=== PATIENT | female | born 1955 | race Caucasian/White ===

== ENCOUNTER 2017-03-08 19:54 | Inpatient (IN) | payer BC ==
[~2017-03-08] VITALS: Ht 163.8 cm; Wt 103.6 kg
[~2017-03-08 19:54] MED LIST: BENAZEPRIL HYDR20 MG OR; FAMOTIDINE10 MG PO; FLOVENT 22220 MCG/PU IH; GLYBURIDE 5MG TA5 MG PO; METFORMIN1000 MG PO; METFORMIN500 MG PO; STERAPRED DS10 MG PO; ULTRAM50 MG PO; XOPENEX HF0.045 MG/A IH; Zithromax500 MG PO
[2017-03-08 19:55] VITALS: BP 133/75
--- OUTSIDE RECORDS SUMMARY | 2017-03-08 20:12 | External Medical Summary Rpt | CCD ---
Author Author , BRIANNA FRANK Address Unknown Phone [email or web address] Purpose Continuity of Care Document - through 2016
--- OUTSIDE RECORDS SUMMARY | 2017-03-08 20:12 | External Medical Summary Rpt | CCD ---
Author Author , BRIANNA FRANK Address Unknown Phone [email or web address] Purpose Continuity of Care Document - through 2016
--- OUTSIDE RECORDS SUMMARY | 2017-03-08 20:13 | External Medical Summary Rpt | CCD ---
Author Author , BRIANNA FRANK Address Unknown Phone [email or web address] Purpose Continuity of Care Document - through 2016
--- OUTSIDE RECORDS SUMMARY | 2017-03-08 20:13 | External Medical Summary Rpt | CCD ---
Author Author , BRIANNA FRANK Address Unknown Phone [email or web address] Purpose Continuity of Care Document - through 2016
--- OUTSIDE RECORDS SUMMARY | 2017-03-08 20:14 | External Medical Summary Rpt ---
Author Author MONIKA Jones, [employer] Organization [employer] Address Unknown Phone Unavailable
--- OUTSIDE RECORDS SUMMARY | 2017-03-08 20:14 | External Medical Summary Rpt | CCD ---
Demographics Preferred Language Maltese Marital Status Unknown Lutheran Affiliation Unknown Race Unknown Ethnic Group Unknown Author Author , MONIKA Organization [facility]IK[employer] Address Unknown Phone Immunization Unable to retrieve immunization data due to connection failure with Immunization Registry. Please try again later.
--- OUTSIDE RECORDS SUMMARY | 2017-03-08 20:14 | External Medical Summary Rpt | CCD ---
Demographics Preferred Language Pashto Marital Status Unknown Protestant Affiliation Unknown Race Unknown Ethnic Group Unknown Author Author , MONIKA Organization [facility] Address Unknown Phone Immunization Unable to retrieve immunization data due to connection failure with Immunization Registry. Please try again later.
[2017-03-08] MEDS ORDERED: ASPIRIN 81MG TA81 MG PO (20:15)
[2017-03-08] MEDS ORDERED: VITAMIN B-1100 MG PO (20:15)
[2017-03-08] MEDS ORDERED: VITAMIN E 400400 IU PO (20:16)
[2017-03-08] MEDS ORDERED: VITAMIN C500 M1 PO (20:16)
[2017-03-08] MEDS ORDERED: MAG-OX 400MG T400 MG PO (20:17)
[2017-03-08] MEDS ORDERED: CRANBERRY400 M2 PO (20:18)
[2017-03-08] MEDS ORDERED: METFORMIN1000 MG PO (20:19)
[2017-03-08] MEDS ORDERED: LOTENSIN 20MG T20 MG PO (20:19)
[2017-03-08] MEDS ORDERED: TRESIBA FL100 UNIT/1 SQ (20:20)
[2017-03-08 20:36] LABS: URINE BILIRUBIN - DIPSTICK NEGATIVE (NEG); URINE BLOOD NEGATIVE (NEG)
[2017-03-08 20:37] LABS: HEMOGLOBIN 14.1 g/dL (12.2-16.2); LYMPH # 1.3 K/mm3 (0.7-4.5); LYMPH % 9.9 % (10-50.0)
--- NOTE | 2017-03-08 20:53 | Emergency Room Report ---
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 N Clinical Suspician of Infection? N Mental Status: 1 - Regular (Normal Baseline) Sepsis Risk:Low Sepsis Risk Have you (or family members/close friends) recently traveled outside the [place]? N If Yes, where/when: Have you had exposure to infectious disease within the past month? N TB? Other? Specify: Comment Patient complains of abdominal pain and vomiting. Vomiting started about 1:00 PM today. Pain started after that. The pain has been periumbilical and upper abdomen, worse on the RIGHT than the LEFT and radiating to the RIGHT back. No diarrhea. No previous similar symptoms. No fever. Pain also radiates up into her chest. She has tried Prilosec and Pepcid without improvement. ALLERGIES Coded Allergies: No Known Allergies (03/08/17) Home Medications Reported Medications ASPIRIN (Aspirin) 81 MG PO DAILY THIAMINE HCL (Vitamin B-1) 100 MG PO DAILY Vitamin E (Vitamin E 400 UNITS) 800 IUNITS PO DAILY Ascorbic Acid (Vitamin C) 1,000 MG PO DAILY MAGNESIUM OXIDE (Magnesium Oxide) 1,600 MG PO DAILY Cranberry Fruit (Cranberry) 400 MG PO BID METFORMIN HCL (Metformin) 1,000 MG PO BID Benazepril Hcl (Lotensin 20MG Tab) 20 MG PO DAILY Insulin Degludec (Tresiba Flextouch U-100) 28 UNIT SQ NIGHT History Medical History General CAD? No Angina: Yes GA: No Hypertension? Yes Hyperlipidemia? No CHF? No DVT? No PE? No COPD? No Asthma? No Anemia? No GERD? No Gastric ulcers? No GI Bleed? No Hernia? No Thyroid Problems? No Hypothyroidism? No CVA? No Seizures? No Diabetes? Yes Insulin Dependent: Yes Insulin Pump: No Home FSBS? Yes Renal Insuffiency? No End Stage Renal Disease? No UTI? No Stones? Yes BPH? No GB Disease: No Nephritic Syndrome? No Asplenia? No Hepatitis? No Sickle Cell Disease? No Arthritis? Yes Migraines? No Cataracts? No Glaucoma? No MRSA? No HIV? No TB? No Anxiety? No Depression? No Cancer? No More? No Immunization Hx DT/Tetanus 1-4 YRS Flu REFUSED Pneumonia 06/22/10 Surgical Hx Previous Surgery?Y TUBAL LITHOTRIPSY appendectomy Social History Smoking Hx Smoker: Never Smoker Tobacco: No Alcohol Alcohol: No Review of Systems All Other Systems Reviewed and Negative Constitutional denies fever Respiratory denies cough Cardiovascular chest pain Gastrointestinal abdominal pain, denies diarrhea, vomiting Genitourinary denies: dysuria. Physical Exam Vital Signs Vital Signs Date Time Temp Pulse Resp B/P Pulse O2 O2 Flow FiO2 Ox Delivery Rate 03/08 2225 102 03/08 2225 98.5 102 16 136/67 03/08 2225 98 ROOM AIR 03/08 2219 98.5 102 16 136/67 98 ROOM AIR 03/08 214 98.6 108 18 133/75 95 03/08 2136 18 03/08 2026 18 03/08 1955 98.6 108 18 133/75 95 General Appearance no apparent distress Eye Exam - bilateral eye normal exam, bilateral eye PERRL, bilateral eye EOMI Ear, Nose, Throat hearing grossly normal, normal ENT inspection Neck normal inspection, non-tender, supple, full range of motion Respiratory Status Yes: trachea midline, chest symmetrical, non tender chest. No: respiratory distress. Lung Sounds bilateral: normal breath sounds, lungs clear. Cardiovascular normal exam, regular rate/rhythm, no peripheral edema, no gallop, no JVD, no murmur, no rub, normal peripheral pulses Peripheral Pulses Pulses normal Yes Gastrointestinal normal bowel sounds, soft, no organomegaly, no guarding, no rebound, tenderness (epigastric and RUQ) Extremities non-tender, normal range of motion, normal inspection Neurologic alert, normal exam, oriented x 3 Mental status normal mood/affect Skin intact, normal color, warm/dry Medical Decision Making LABS/Meds/Orders Pt receiving controlled substance in ED? Yes Alf was queried for this patient? No Reason not queried - emergent pt cond=no time Results/Orders Laboratory Tests 03/08/172027: POC Glucose 186 H 03/08/172019: Amylase 1986 *H, Lipase 96087 H 03/08/172019: Sodium 141, Potassium 3.7, Chloride 102, Carbon Dioxide 30, BUN 15, Creatinine 0.7, Estimated Creat Clear 140, Estimated GFR (MDRD) 85, Glucose 195 H, Calcium 9.3, Total Bilirubin 1.9 H, AST 312 *H, ALT 172 H, Alkaline Phosphatase 144 H , Creatine Kinase 106, CK-MB (CK-2) Rel Index 2.5, CK and CKMB Interp 2.7, Troponin I < 0.02, Total Protein 7.0, Albumin 3.8, Globulin 3.2, Albumin/ Globulin Ratio 1.2, WBC 12.7 H, RBC 4.60, Hgb 14.1, Hct 42.2, MCV 91.7, RDW 12.7, Plt Count 202, MPV 8.1, Gran % 85.7 H, Gran # 10.9 H, Total Counted 100, Lymphocytes % 9.9 L, Monocytes % 3.3, Eosinophils % 0.8, Basophils % 0.2, Neutrophils 86 H, Band Neutrophils 7, Lymphocytes (Manual) 6 L, Lymphocytes # 1.3, Monocytes (Manual) 1 L, Monocytes # 0.4, Eosinophils # 0.1, Basophils # 0.0, RBC/WBC/PLT Morphology NORMAL, Platelet Estimate NORMAL, PUBS MCHC 33.3, MCH 30.5 03/08/172007: Urine Color YELLOW, Urine Appearance CLEAR, Urine pH 7.0, Ur Specific [place] 1.015, Urine Protein NEGATIVE, Urine Ketones TRACE H, Urine Blood NEGATIVE, Urine Nitrate NEGATIVE, Urine Bilirubin NEGATIVE, Urine Urobilinogen 0.2, Ur Leukocyte Esterase NEGATIVE, Ur Squamous Epith Cells FEW, Urine Glucose NEGATIVE Current Medication Orders Sig/Enrique Start time Last Medication Dose Route Stop Time Status Admin Diagnostic Test (Pha) 1 EACH W/MEALS&HS 03/09 700 UNV FS 05/08 0659 Insulin Human [rDNA See Dose W/MEALS&HS 03/09 700 UNV origin] Insts (1) SC Influenza Virus 0.5 ML PRN PRN 03/08 2145 UNV Vaccine Quadrival IM Morphine Sulfate 2 MG Q2HP PRN 03/08 2145 UNV IV Nicotine 21 MG DAILYP PRN 03/08 2145 UNV TD Ondansetron HCl 4 MG Q6HP PRN 03/08 2145 UNV IV Sodium Chloride 1,000 ML .Q6H40M 03/08 2145 UNV 03/08 IV 2234 Sodium Chloride 10 ML PRN PRN 03/08 2145 UNV IV Morphine Sulfate 0 .STK-MED ONE 03/08 2134 DC .ROUTE Morphine Sulfate 4 MG ONCE ONE 03/08 2130 DC 03/08 IV 03/08 Ketorolac 30 MG ONCE ONE 03/08 2030 DC 03/08 Tromethamine IV 03/08 Ondansetron HCl 4 MG ONCE ONE 03/08 2030 DC 03/08 IV 03/08 Sodium Chloride 1,000 ML .Q1H1M 03/08 2030 DC 03/08 IV 03/08 Sodium Chloride 10 ML PRN PRN 03/08 2030 AC IV 03/09 2022 Sodium Chloride 10 ML PRN PRN 03/08 2030 AC IV 03/09 2023 Ketorolac 0 .STK-MED ONE 03/08 2024 DC Tromethamine .ROUTE Ondansetron HCl 0 .STK-MED ONE 03/08 2024 DC .ROUTE Sodium Chloride 1,000 ML .STK-MED ONE 03/08 2024 DC IV Dose Instructions: (1)Insulin Human [rDNA origin]: SEE ADMIN CRITERIA FOR MEDIUM INTENSITY Orders Procedure Date/time Status US GALLBLADDER (ABD LTD) 03/10 0700 Active DIET-NOTHING BY MOUTH 03/09 B Active LIPASE 03/09 06 Active COMPLETE METABOLIC PANEL 03/09 06 Active ADMITTED PT IS ACTUALLY IN BED 03/08 2222 Active Decision to admit 03/08 2130 Active LIPASE 03/08 2036 Complete FSBS REQUEST BY CARE AREA 03/08 2036 Active AMYLASE 03/08 2036 Complete URINALYSIS/COMPLETE 03/08 2031 Complete FINGERSTICK BLOOD SUGAR 03/08 2028 Complete ELECTROCARDIOGRAM REQUEST 03/[address] ABD/PELVIS REQ 03/08 2024 Active CHEST(2 VIEWS-NOT PORTABLE) 03/08 2024 Active IV SALINE LOCK 03/08 2024 Active CBC WITH AUTO DIFF 03/08 2024 Complete CARDIAC ENZYMES 03/08 2024 Complete CHEM 12 PROFILE 03/08 2024 Complete DIFFERENTIAL-WBC 03/08 2020 Complete ADMIT PATIENT 03/08 UNK Active 12 LEAD EKG-BESSON (INITIAL) 03/[address] ABD & PELVIS W/O CONTRAST 03/08 UNK Active VITAL SIGNS 03/08 UNK Active POM NURSE JON HOSE ORDER 03/08 UNK Active IV SALINE LOCK 03/08 UNK Active RECORD I & O 03/08 UNK Active CODE STATUS 03/08 UNK Active PATIENT ACTIVITY ORDER 03/08 UNK Active CM/EKG CM/EKG Comments EKG interpreted by Doroteo Momin MD: Rhythm: sinus Rate: 80 [place]: normal Ectopy: none Conduction: normal ST Segment Changes: none T Wave Changes: none Q Waves: none No evidence of acute ischemia or injury Poor R-wave progression Prior electrocardiagrams reviewed. No change from prior tracings. XRAY/CT/US XRAY/CT/US XRAY chest Comment Chest x-ray interpreted by Doroteo Momin M.D. No infiltrate, pneumothorax, pleural effusion, or wide mediastinum. CT abdomen, pelvis Comment CT scan interpreted by [facility] radiologist. Faxed report received and reviewed: Acute pancreatitis with secondary inflammation of the adjacent duodenum. He adjacent duodenum shows severe wall thickening and underlying tiny ulcer cannot be completely excluded on this exam. Distended gallbladder, no calcified stones. Progress - 9:30 PM: I have discussed the case with Dr. Payton who agrees to admit the patient to the hospital. We discussed the patient's clinical information, including history, exam, laboratory and radiology results and ED course. Per hospital procedure, I will write temporary bridge inpatient orders on the patient. Specific orders requested by the admitting physician: Nothing by mouth, IV fluids, pain control Departure Departure Disposition Still a Patient Clinical Impression Primary Impression: Acute pancreatitis Qualifiers: Pancreatitis type: unspecified pancreatitis type Acute pancreatitis complication: no infection or necrosis Qualified Code: K85.90 - Acute pancreatitis without necrosis or infection, unspecified Condition STABLE ED Critical Care Critical Care No at [id number]
[2017-03-08 20:55] LABS: URINE SQUAMOUS CELLS FEW #/hpf (0-5)
[2017-03-08 21:03] LABS: NEUTROPHILS 86 % (42-76)
[2017-03-08 21:09] LABS: BUN 15 mg/dL (7-18); GFR (ESTIMATED) 85 ML/MIN (59-)
--- OUTSIDE RECORDS SUMMARY | 2017-03-08 21:35 | External Medical Summary Rpt | CCD ---
Author Author , BRIANNA FRANK Address Unknown Phone [email or web address] Purpose Continuity of Care Document - through 2016
--- OUTSIDE RECORDS SUMMARY | 2017-03-08 21:35 | External Medical Summary Rpt | CCD ---
Author Author , BRIANNA FRANK Address Unknown Phone [email or web address] Purpose Continuity of Care Document - through 2016
--- OUTSIDE RECORDS SUMMARY | 2017-03-08 21:35 | External Medical Summary Rpt | CCD ---
Author Author , MONIKA Organization MONIKA Address Unknown Phone [email or web address] Purpose Continuity of Care Document - 03-08-2017 through 2016 Results Labs Lab Lab Date Result Refere Interp Status Commen Order Detail nces retati t Range on Glucose capillary blood glucometer (03-08-2017 20:28) Glucose = 186 70-110 complet 017 mg/dl ed capilla 20:[address] CBC w auto diff (03-08-2017 20:20) Automat = 0.0 0-0.2 complet ed 017 K/MM3 ed blood 20:20 basophi l count (count/ vo Baso % = 0.2 % 0.1-2.0 complet 017 ed 20:20 Automat = 0.1 0.0-0.4 complet ed 017 K/mm3 ed blood 20:20 eosinop hil count Automat = 0.8 % 0.1-12. complet ed 017 0 ed blood 20:20 eosinop hils/10 0 leukocy t Blood = 10.9 1.8-7.8 complet granulo 017 K/mm3 ed cytes 20:20 automat ed count (numb Granulo = 85.7 37.0-80 complet cyte 017 % .0 ed percent 20:20 age Blood = 42.2 37.0-47 complet hematoc 017 % .0 ed rit 20:20 (volume fractio n) Blood = 14.1 12.2-16 complet hemoglo 017 g/dL .2 ed bin 20:20 measure ment (mass/v olum Absolut = 1.3 0.7-4.5 complet e 017 K/mm3 ed lymphoc 20:20 yte count Lymphoc = 9.9 % 10-50.0 complet yte 017 ed count, 20:20 blood, automat ed Mean = 30.5 27-31.2 complet corpusc 017 pg ed ular 20:20 hemoglo bin (MCH) determ Automat = 33.3 31.8-35 complet ed 017 g/dl .4 ed erythro 20:20 cyte mean corpusc ular h Automat = 91.7 82.2-97 complet ed 017 fl .8 ed erythro 20:20 cyte mean corpusc ular v Absolut = 0.4 0.1-1.0 complet e 017 K/mm3 ed monocyt 20:20 e count [place] % = 3.3 % 1.7-9.3 complet 017 ed 20:20 Automat = 8.1 7.4-10. complet ed 017 fl 4 ed blood 20:20 platele t mean volume [place] Blood = 202 142-424 complet platele 017 K/mm3 ed t count 20:20 Red = 4.60 4.2-5.4 complet blood 017 M/mm3 ed cell 20:20 count Automat = 12.7 11.5-17 complet ed 017 % .5 ed erythro 20:20 cyte distrib ution width Blood = 12.7 4.8-10. complet leukocy 017 K/MM3 8 ed dayna 20:20 count (number /volume ) Differential panel, method unspecified - (03-08-2017 20:20) Automat = 7 % 0-8 complet ed 017 ed blood 20:20 band neutrop hil percent a LYMPH 6 % 10-50 complet 017 ed 20:20 Monocyt = 1 % 2-9 complet e % 017 ed 20:20 Platele NORMAL complet t 017 NORMAL ed estimat 20:20 L e Neutrop = 86 % 42-76 complet hil 017 ed count 20:20 RBC NORMAL complet morphol 017 NORMAL ed ogy 20:20 L Blood = 100 complet total 017 #CELLS ed cell 20:20 count Cardiac enzymes (03-08-2017 20:20) Serum = 2.5 0-4.0 complet or 017 U/L ed plasma 20:20 creatin e kinase MB (CK-M Serum = 2.7 0.0-3.6 complet or 017 ng/mL ed plasma 20:20 creatin e kinase MB measu Serum = 106 26-192 complet or 017 U/L ed plasma 20:20 creatin e kinase measure m Serum < 0.02 0.00-0. complet or 017 ng/mL 06 ed plasma 20:20 troponi n i.cardi ac measu Comprehensive metabolic panel (03-08-2017 20:20) Serum = 3.8 3.4-5.0 complet or 017 gm/dL ed plasma 20:20 albumin measure ment (mas Serum = 144 46-116 complet or 017 U/L ed plasma 20:20 alkalin e phospha tase chalino Serum = 1.9 0.2-1.0 complet or 017 mg/dL ed plasma 20:20 total bilirub in measure m Serum = 1.2 1.1-1.8 complet or 017 ed plasma 20:20 albumin /globul in mass ra Serum = 15 7-18 complet or 017 mg/dL ed plasma 20:20 urea nitroge n measure men Serum = 9.3 8.5-10. complet or 017 mg/dL 1 ed plasma 20:20 calcium measure ment (mas Serum = 102 98-107 complet or 017 mmoL/L ed plasma 20:20 chlorid e measure ment (mo Carbon = 30 21.0-32 complet dioxide 017 mmoL/L .0 ed 20:20 measure ment Serum = 0.7 0.55-1. complet or 017 mg/dL 02 ed plasma 20:20 creatin ine measure ment ( Estimat = 140 50-200 complet ion of 017 ML/MIN ed creatin 20:20 ine renal clearan ce Estimat = 85 59- complet ed 017 ML/MIN ed glomeru 20:20 lar filtrat ion rate (GF Comment: REFERENCE RANGE: >60 ML/MIN/1.73 SQUARE METERS Comment: If this patient is -Guinean, then multiply the Comment: result by 1.210. Serum = 3.2 1.3-3.2 complet globuli 017 gm/dL ed n 20:20 measure ment (mass/v olume) Serum = 195 74-106 complet or 017 mg/dL ed plasma 20:20 glucose measure ment (mas Serum = 3.7 3.5-5.1 complet potassi 017 mmoL/L ed um 20:20 measure ment Serum = 141 136-145 complet sodium 017 mmoL/L ed measure 20:20 ment Serum = 312 15-37 complet or 017 U/L ed plasma 20:20 asparta te aminotr ansfera ALT = 172 12-78 complet (SGPT) 017 U/L ed ser/yuri 20:20 s Protein = 7.0 6.4-8.2 complet total 017 gm/dL ed ser/yuri 20:20 s Amylase ser/plas (03-08-2017 20:20) Amylase = 1985 25-115 complet 017 U/L ed ser/yuri 20:20 s Lipase measurement (03-08-2017 20:20) Lipase = [address]77 73-393 complet measure 017 U/L ed ment 20:20 Differential panel, method unspecified - (03-08-2017 20:20) LYMPH 6 % 10% - Low complet 017 50% ed 20:20 Platele NORMAL complet ts 017 ed [Presen 20:20 ce] in Blood by Light microsc opy Erythro NORMAL complet cyte 017 ed morphol 20:20 ogy finding [Identi fier] in Blood Urinalysis with microscopy (03-08-2017 20:08) Urine CLEAR CLEAR complet appeara 017 CLEAR L ed nce 20:08 determi nation Urine NEGATIV NEG complet total 017 E ed bilirub 20:08 NEGATIV in E L detecti on by test Urine NEGATIV NEG complet blood 017 E ed detecti 20:08 NEGATIV on E L Urine YELLOW YELLOW complet color 017 YELLOW ed 20:08 L Glucose = NEG complet ur 017 NEGATIV ed test 20:08 E strip Urine TRACE NEG complet ketones 017 TRACE L ed 20:08 mg/dL detecti on by automat ed dayna Mucus NEGATIV NEG complet detecti 017 E ed on in 20:08 NEGATIV urine E L sedimen t by lig Urine NEGATIV NEG complet nitrite 017 E ed 20:08 NEGATIV detecti E L on by test strip Urine = 7.0 5.0-8.5 complet pH 017 ed 20:08 Urine = NEG complet protein 017 NEGATIV ed 20:08 E mg/dL measure ment by automat ed t Urine = 1.015 1.005-1 complet specifi 017 .030 ed c 20:08 gravity measure ment [place] FEW FEW 0-5 complet s 017 L ed epithel 20:08 #/hpf ial cells detecti on in u Urine 0.2 0.2 NEG complet urobili 017 L ed nogen 20:08 E.U./dL detecti on by test str Urinalysis dipstick W Reflex Microscopic panel in Urine (03-08-2017 20:08) Epithel FEW 0#/hp complet ial 017 f - ed cells.s 20:08 5#/hp quamous f [Presen ce] in Urine sedimen t by Microsc opy high power field Urinalysis dipstick W Reflex Microscopic panel in Urine (03-08-2017 20:08) Appeara CLEAR CLEAR complet nce of 017 ed Urine 20:08 Bilirub NEGATIV NEG complet in 017 E ed [Presen 20:08 ce] in Urine by Test strip Erythro NEGATIV NEG complet cytes 017 E ed [Presen 20:08 ce] in Urine Color YELLOW YELLOW complet of 017 ed Urine 20:08 Ketones TRACE NEG Abnorma complet 017 l ed [Presen 20:08 ce] in Urine by Automat ed test strip Mucus NEGATIV NEG complet [Presen 017 E ed ce] in 20:08 Urine sedimen t by Light microsc opy Nitrite NEGATIV NEG complet 017 E ed [Presen 20:08 ce] in Urine by Test strip Urobili 0.2 NEG complet nogen 017 ed [Presen 20:08 ce] in Urine by Test strip
--- OUTSIDE RECORDS SUMMARY | 2017-03-08 21:35 | External Medical Summary Rpt | CCD ---
Author Author , MONIKA Organization MONIKA Address Unknown Phone [email or web address] Purpose Continuity of Care Document - 03-08-2017 [...] 017 K/mm3 ed monocyt 20:20 e count [place] % = 3.3 % 1.7-9.3 complet 017 [...] SQUARE METERS Comment: If this patient is -[place], then multiply the Comment: result by 1.210. [...] s Lipase measurement (03-08-2017 20:20) Lipase = 31506 73-393 complet measure 017 U/L ed ment [...]
--- OUTSIDE RECORDS SUMMARY | 2017-03-08 21:36 | External Medical Summary Rpt | CCD ---
Demographics Preferred Language Greenlandic Marital Status Unknown Pentecostal Affiliation Unknown Race Unknown Ethnic Group Unknown Author Author , MONIKA Organization [employer] Address Unknown Phone Immunization Unable to retrieve immunization data due to connection failure with Immunization Registry. Please try again later.
--- OUTSIDE RECORDS SUMMARY | 2017-03-08 21:36 | External Medical Summary Rpt | CCD ---
Demographics Preferred Language Belarusian Marital Status Unknown Samaritan Affiliation Unknown Race Unknown Ethnic Group Unknown Author Author , MONIKA Organization [facility] Address Unknown Phone Immunization Unable to retrieve immunization data due to connection failure with Immunization Registry. Please try again later.
--- OUTSIDE RECORDS SUMMARY | 2017-03-08 21:37 | External Medical Summary Rpt ---
Author Author MONIKA Robert, [employer] Organization [employer] Address Unknown Phone Unavailable Results Glucose [Mass/volume] in Capillary blood by Glucometer Observa Value Referen Units Interpr Notes Date tion ce etation Range Glucose 70 - 110 mg/dl High No Mar 08 [Mass/vol informati 2016 8:28 ume] in on in PM Capillary source blood by data Glucomete r Amylase [Enzymatic activity/volume] in Serum or Plasma Observa Value Referen Units Interpr Notes Date tion ce etation Range Amylase 25 - 115 U/L High No Mar 08 [Enzymati alert informati 2016 8:20 c on in PM activity/ source volume] data in Serum or Plasma Lipase [Enzymatic activity/volume] in Serum or Plasma Observa Value Referen Units Interpr Notes Date tion ce etation Range Lipase 73 - 393 U/L High No Mar 08 [Enzymati informati 2016 8:20 c on in PM activity/ source volume] data in Serum or Plasma CBC W Auto Differential panel in Blood Observa Value Referen Units Interpr Notes Date tion ce etation Range Basophils 0 - 0.2 K/MM3 Normal No Mar 08 informati 2016 8:20 [#/volume on in PM ] in source Blood by data Automated count Basophils 0.1 - 2.0 % Normal No Mar 08 informati 2016 8:20 leukocyte on in PM s in source Blood by data Automated count Eosinophi 0.0 - 0.4 K/mm3 Normal No Mar 08 ls informati 2016 8:20 [#/volume on in PM ] in source Blood by data Automated count Eosinophi 0.1 - % Normal No Mar 08 ls/100 12.0 informati 2016 8:20 leukocyte on in PM s in source Blood by data Automated count Granulocy 1.8 - 7.8 K/mm3 High No Mar 08 dayna informati 2016 8:20 [#/volume on in PM ] in source Blood by data Automated count Granulocy 37.0 - % High No Mar 08 dayna/100 80.0 informati 2017 8:20 leukocyte on in PM s in source Blood by data Automated count Hematocri 37.0 - % Normal No Mar 08 t [Volume 47.0 informati 2016 8:20 on in PM Fraction] source of Blood data Hemoglobi 12.2 - g/dL Normal No Mar 08 n 16.2 informati 2016 8:20 [Mass/vol on in PM ume] in source Blood data Lymphocyt 0.7 - 4.5 K/mm3 Normal No Mar 08 es informati 2016 8:20 [#/volume on in PM ] in source Unspecifi data ed specimen by Automated count Lymphocyt 10 - 50.0 % Low No Mar 08 es informati 2016 8:20 [#/volume on in PM ] in source Unspecifi data ed specimen by Automated count Erythrocy 27 - 31.2 pg Normal No Mar 08 te mean informati 2016 8:20 corpuscul on in PM ar source hemoglobi data n [Entitic mass] Erythrocy 31.8 - g/dl Normal No Mar 08 te mean 35.4 informati 2016 8:20 corpuscul on in PM ar source hemoglobi data n concentra tion [Mass/vol ume] by Automated count Erythrocy 82.2 - fl Normal No Mar 08 te mean 97.8 informati 2016 8:20 corpuscul on in PM ar volume source [Entitic data volume] by Automated count Monocytes 0.1 - 1.0 K/mm3 Normal No Mar 08 informati 2016 8:20 [#/volume on in PM ] in source Blood by data Automated count Monocytes 1.7 - 9.3 % Normal No Mar 08 /100 informati 2016 8:20 leukocyte on in PM s in source Blood by data Automated count Platelet 7.4 - fl Normal No Mar 08 mean 10.4 informati 2016 8:20 volume on in PM [Entitic source volume] data in Blood by Automated count Platelets 142 - 424 K/mm3 Normal No Mar 08 informati 2016 8:20 [#/volume on in PM ] in source Blood data Erythrocy 4.2 - 5.4 M/mm3 Normal No Mar 08 dayna informati 2016 8:20 [#/volume on in PM ] in source Amniotic data fluid Erythrocy 11.5 - % Normal No Mar 08 te 17.5 informati 2016 8:20 distribut on in PM ion width source [Entitic data volume] by Automated count Leukocyte 4.8 - K/MM3 High No Feb 28 s 10.8 informati 2016 8:20 [#/volume on in PM ] in source Blood data Differential panel, method unspecified - Observa Value Referen Units Interpr Notes Date tion ce etation Range Neutrophi 0 - 8 % Normal No Mar 08 ls.band informati 2016 8:20 form/100 on in PM leukocyte source s in data Blood by Automated count LYMPH 6 10 - 50 % Low No Mar 08 inform2016 tion in 8:20 PM source data Monocytes 2 - 9 % Low No Oct 28 /100 informati 2016 8:20 leukocyte on in PM s in source Blood by data Automated count Platele NORMAL No No No No Mar 08 ts informa informa informa informa 2016 [Presen tion in tion in tion in tion in 8:20 PM ce] in source source source source Blood data data data data by Light microsc opy Neutrophi 42 - 76 % High No Mar 08 ls informati 2016 8:20 [#/volume on in PM ] in source Blood by data Automated count Erythro NORMAL No No No No Mar 08 cyte informa informa informa informa 2016 morphol tion in tion in tion in tion in 8:20 PM ogy source source source source finding data data data data [Identi fier] in Blood Cells No #CELLS No No Mar 08 Counted informati informati informati 2016 8:20 Total [#] on in on in on in PM in Blood source source source data data data Urinalysis dipstick W Reflex Microscopic panel in Urine Observa Value Referen Units Interpr Notes Date tion ce etation Range Appeara CLEAR CLEAR No No No Mar 08 nce of informa informa informa 2016 Urine tion in tion in tion in 8:08 PM source source source data data data Bilirub NEGATIV NEG No No No Mar 08 in E informa informa informa 2016 [Presen tion in tion in tion in 8:08 PM ce] in source source source Urine data data data by Test strip Erythro NEGATIV NEG No No No Mar 08 cytes E informa informa informa 2016 [Presen tion in tion in tion in 8:08 PM ce] in source source source Urine data data data Color YELLOW YELLOW No No No Mar 08 of informa informa informa 2016 Urine tion in tion in tion in 8:08 PM source source source data data data Glucose NEG No No No Mar 08 [Mass/vol informati informati informati 2016 8:08 ume] in on in on in on in PM Urine by source source source Test data data data strip Ketones TRACE NEG mg/dL Abnorma No Mar 08 l informa 2016 [Presen tion in 8:08 PM ce] in source Urine data by Automat ed test strip Mucus NEGATIV NEG No No No Mar 08 [Presen E informa informa informa 2016 ce] in tion in tion in tion in 8:08 PM Urine source source source sedimen data data data t by Light microsc opy Nitrite NEGATIV NEG No No No Mar 08 E informa informa informa 2016 [Presen tion in tion in tion in 8:08 PM ce] in source source source Urine data data data by Test strip pH of 5.0 - 8.5 No Normal No Mar 08 Urine informati informati 2016 8:08 on in on in PM source source data data Protein NEG mg/dL No No Mar 08 [Mass/vol informati informati 2016 8:08 ume] in on in on in PM Urine by source source Automated data data test strip Specific 1.005 - No Normal No Mar 08 gravity 1.030 informati informati 2016 8:08 of Urine on in on in PM source source data data Epithel FEW 0 - 5 #/hpf No No Mar 08 ial informa informa 2016 cells.s tion in tion in 8:08 PM quamous source source data data [Presen ce] in Urine sedimen t by Microsc opy high power field Urobili 0.2 NEG E.U./dL No No Mar 08 nogen informa informa 2016 [Presen tion in tion in 8:08 PM ce] in source source Urine data data by Test strip Urinalysis dipstick W Reflex Microscopic panel in Urine Observa Value Referen Units Interpr Notes Date tion ce etation Range Appeara CLEAR CLEAR No No No Mar 08 nce of informa informa informa 2016 Urine tion in tion in tion in 8:08 PM source source source data data data Bilirub NEGATIV NEG No No No Mar 08 in E informa informa informa 2016 [Presen tion in tion in tion in 8:08 PM ce] in source source source Urine data data data by Test strip Erythro NEGATIV NEG No No No Mar 08 cytes E informa informa informa 2016 [Presen tion in tion in tion in 8:08 PM ce] in source source source Urine data data data Color YELLOW YELLOW No No No Mar 08 of informa informa informa 2016 Urine tion in tion in tion in 8:08 PM source source source data data data Glucose NEG No No No Mar 08 [Mass/vol informati informati informati 2016 8:08 ume] in on in on in on in PM Urine by source source source Test data data data strip Ketones TRACE NEG mg/dL Abnorma No Mar 08 l informa 2016 [Presen tion in 8:08 PM ce] in source Urine data by Automat ed test strip Mucus NEGATIV NEG No No No Mar 08 [Presen E informa informa informa 2016 ce] in tion in tion in tion in 8:08 PM Urine source source source sedimen data data data t by Light microsc opy Nitrite NEGATIV NEG No No No Mar 08 E informa informa informa 2016 [Presen tion in tion in ti in 8:08 PM ce] in source source source Urine data data data by Test strip pH of 5.0 - 8.5 No Normal No Mar 08 Urine informati informati 2016 8:08 on in on in PM source source data data Protein NEG mg/dL No No Mar 08 [Mass/vol informati informati 2016 8:08 ume] in on in on in PM Urine by source source Automated data data test strip Specific 1.005 - No Normal No Mar 08 gravity 1.030 informati informati 2016 8:08 of Urine on in on in PM source source data data Urobili 0.2 NEG E.U./dL No No Mar 08 nogen informa informa 2016 [Presen tion in tion in 8:08 PM ce] in source source Urine data data by Test strip
[2017-03-08 22:19] VITALS: BP 136/67
[2017-03-08 22:25] VITALS: BP 136/67
[2017-03-09 03:55] VITALS: BP 122/60
--- NOTE | 2017-03-09 06:58 | RADIOLOGY REPORT PS360 ---
CHEST(2 VIEWS-NOT PORTABLE) HISTORY: Pain VOMITING ORDERING PHYSICIAN: Doroteo Momin MD PATIENT AGE: 61 years COMPARISON: 06/20/2010 FINDINGS: The cardiomediastinal silhouette and pulmonary vascularity are within normal limits. The lungs are clear without infiltrates, suspicious nodules, or pleural effusions. No acute bony abnormalities. IMPRESSION: Negative chest, no acute finding
[2017-03-09 07:20] VITALS: BP 134/71
--- NOTE | 2017-03-09 07:42 | RADIOLOGY REPORT PS360 ---
CT ABD PELVIS W/O CONTRAST CLINICAL INDICATION: Abdominal pain and tenderness with nausea and vomiting C/O ABD PAIN ORDERING PHYSICIAN: Deon Payton MD PATIENT AGE: 61 years COMPARISON: 07/23/2013 TECHNIQUE: Axial images obtained with sagittal and coronal reformats. PROCEDURE: Oral Contrast: None IV Contrast: None . FINDINGS: Lung bases are clear. Mild diffuse fatty liver. No focal liver lesion. Gallbladder is distended. No radio opaque stones. The spleen and adrenal glands are unremarkable. There is mild diffuse stranding of the peripancreatic fat consistent with acute pancreatitis. There is thickening of the adjacent duodenum involving the descending and transverse portion of the duodenum consistent with secondary inflammation. Small gas collections are noted within the duodenum and may be due to 2 duodenal diverticula as seen on previous exam. No free air is evident. No intestinal obstruction. No renal calculi or hydronephrosis. No abnormal fluid collections. There is partially calcified rounded lesion in the right adnexa unchanged. There is generalized spondylosis of the lumbar spine. IMPRESSION: 1. The findings are consistent with acute pancreatitis with secondary inflammation of the adjacent duodenum with probable duodenal diverticula.. Cannot exclude ulceration within the duodenum. Gas pockets are noted in the duodenum and could be due to diverticula. Consider follow-up exam with both IV and oral contrast for more thorough evaluation. 2. Distended gallbladder
--- NOTE | 2017-03-09 08:53 | HISTORY AND PHYSICAL REPORT ---
Demographics: Admit date: 03/08/17 Chief complaint: Epigastric pain PRIMARY DIAGNOSIS: ACUTE PANCREATITIS Allergies: Coded Allergies: No Known Allergies (03/08/17) History of present illness: History of present illness: 61-year-old white female diabetic, insulin requiring, who came to the emergency department yesterday evening with a sudden onset of severe epigastric pain that radiated down into both lower quadrants and through to her back. She reports significant nausea without vomiting, no diarrhea or constipation. No recent exposure to undercooked food or questionable water sources, no recent change in her medications. No recent alcohol use. In the emergency department she was noted to have elevated amylase and lipase, CT scan confirmed the finding of pancreatitis radiographically with evidence of duodenitis. Past medical history: Family HX Diabetes Yes CAD Yes Hypertension Yes Hyperlipidemia Yes Cancer No TB No Immunization HX DT/Tetanus 5-10 Years Ago Flu 2017-18FSN Pneumonia Received In Past TB Test in last year No General CAD? No Angina: Yes TN: No Hypertension? Yes Hyperlipidemia? No CHF? No DVT? No PE? No COPD? No Asthma? No Anemia? No GERD? No Gastric ulcers? No GI Bleed? No Hernia? No Thyroid Problems? No Hypothyroidism? No CVA? No Seizures? No Diabetes? Yes Insulin Dependent: Yes Insulin Pump: No Home FSBS? Yes Renal Insuffiency? No UTI? No Stones? Yes BPH? No GB Disease: No Nephritic Syndrome? No Asplenia? No Hepatitis? No Sickle Cell Disease? No Arthritis? Yes Migraines? No Cataracts? No Glaucoma? No MRSA? No HIV? No TB? No Anxiety? No Depression? No Cancer? No More? No Past Surgical HX Previous Surgery?Y TUBAL LITHOTRIPSY Current home meds: Reported Medications ASPIRIN (Aspirin) 81 MG PO DAILY THIAMINE HCL (Vitamin B-1) 100 MG PO DAILY Vitamin E (Vitamin E 400 UNITS) 800 IUNITS PO DAILY Ascorbic Acid (Vitamin C) 1,000 MG PO DAILY MAGNESIUM OXIDE (Magnesium Oxide) 1,600 MG PO DAILY Cranberry Fruit (Cranberry) 400 MG PO BID METFORMIN HCL (Metformin) 1,000 MG PO BID Benazepril Hcl (Lotensin 20MG Tab) 20 MG PO DAILY Insulin Degludec (Tresiba Flextouch U-100) 28 UNIT SQ NIGHT Social Hx: Smoking HX Tobacco No Type N/A Alcohol Alcohol: No Hx of Drug Use Drug Use? No Patien't marital status is Patient's support system is excellent Review of systems: Constitutional fever, malaise, weakness. Respiratory No: no symptoms reported. Cardiovascular No no symptoms reported Gastrointestinal/Abdominal see HPI Genitourinary No: no symptoms reported. Musculoskeletal No: no symptoms reported. Neurological Yes: headache. No: numbness, tingling, tremors, weakness, parasthesia, seizure disorder. Exam: Lab data for last 24 hours: Laboratory Tests 03/09/17 0617: POC Glucose 150 H 03/09/17 0605: Sodium 141, Potassium 3.8, Chloride 104, Carbon Dioxide 29, BUN 15, Creatinine 0.8, Estimated Creat Clear 119, Estimated GFR (MDRD) 73, Glucose 159 H, Calcium 8.7, Total Bilirubin 3.8 H, AST 499 *H, ALT 389 *H, Alkaline Phosphatase 156 H , Total Protein 6.5, Albumin 3.3 L, Globulin 3.2, Albumin/Globulin Ratio 1.0 L , Lipase 6926 H 03/08/172027: POC Glucose 186 H 03/08/172019: Amylase 1986 *H, Lipase 05049 H 03/08/17 2020: Sodium 141, Potassium 3.7, Chloride 102, Carbon Dioxide 30, BUN 15, Creatinine 0.7, Estimated Creat Clear 140, Estimated GFR (MDRD) 85, Glucose 195 H, Calcium 9.3, Total Bilirubin 1.9 H, AST 312 *H, ALT 172 H, Alkaline Phosphatase 144 H , Creatine Kinase 106, CK-MB (CK-2) Rel Index 2.5, CK and CKMB Interp 2.7, Troponin I < 0.02, Total Protein 7.0, Albumin 3.8, Globulin 3.2, Albumin/ Globulin Ratio 1.2, WBC 12.7 H, RBC 4.60, Hgb 14.1, Hct 42.2, MCV 91.7, RDW 12.7, Plt Count 202, MPV 8.1, Gran % 85.7 H, Gran # 10.9 H, Total Counted 100, Lymphocytes % 9.9 L, Monocytes % 3.3, Eosinophils % 0.8, Basophils % 0.2, Neutrophils 86 H, Band Neutrophils 7, Lymphocytes (Manual) 6 L, Lymphocytes # 1.3, Monocytes (Manual) 1 L, Monocytes # 0.4, Eosinophils # 0.1, Basophils # 0.0, RBC/WBC/PLT Morphology NORMAL, Platelet Estimate NORMAL, PUBS MCHC 33.3, MCH 30.5 03/08/172007: Urine Color YELLOW, Urine Appearance CLEAR, Urine pH 7.0, Ur Specific [place] 1.015, Urine Protein NEGATIVE, Urine Ketones TRACE H, Urine Blood NEGATIVE, Urine Nitrate NEGATIVE, Urine Bilirubin NEGATIVE, Urine Urobilinogen 0.2, Ur Leukocyte Esterase NEGATIVE, Ur Squamous Epith Cells FEW, Urine Glucose NEGATIVE Admission vital signs: 1ST Vital Signs Result Date Time Pulse Ox 95 03/08 1955 B/P 133/75 03/08 1955 Temp 98.6 03/08 1955 Pulse 108 03/08 1955 Resp 18 03/08 1955 O2 Delivery ROOM AIR 03/08 2219 Additional information: Patient is awake, alert, pleasant. ENT exam clear. Lungs clear, heart rate regular without murmurs. Abdomen is soft, her morbid obesity limits the accuracy of the exam. She has epigastric tenderness but no rebound or guarding. No periumbilical or flank bruising. No CVA tenderness. No edema or clubbing. Plan: Problem List 1. Acute pancreatitis Plan: Patient is febrile this morning, I will add Invanz to cover possible cholangitis given the high likelihood that this is gallstone pancreatitis. Duodenitis on CT scan. Add Protonix intravenously. Gallbladder ultrasound tomorrow. Continue pain control and IV fluids and bowel rest. at 0853
[2017-03-09 10:04] VITALS: BP 134/71
--- NOTE | 2017-03-09 10:24 | PHARMACY CLINIC NOTE ---
Patient Demographics Patient Demographics Admission date: 03/08/17 Date: 03/09/17 Allergies Coded Allergies: No Known Allergies (03/08/17) HEIGHT- FT: 5 IN: 4.50 K.691 VTE General Information Labs: Laboratory Tests 03/08 2020 Hematology Hgb (12.2 - 16.2 g/dL) 14.1 Hct (37.0 - 47.0 %) 42.2 Plt Count (142 - 424 K/mm3) 202 Disclaimer The following section includes nursing documentation that has been pulled in for pharmacy review. Patient's VTE score: 2 Patient's VTE Risk: VERY LOW RISK Clinical trial participant? No VTE prophylaxis [id number] VTE prophylaxis ordered? Yes Type of prophylaxis/treatment: JON at 1024
[2017-03-09 15:48] VITALS: BP 119/63
[2017-03-09 20:11] VITALS: BP 134/63
[2017-03-09 20:20] VITALS: BP 134/63
[2017-03-10] VITALS (14 sets, daily range): BP systolic 122–161; BP diastolic 63–91
[2017-03-10 07:47] LABS: LYMPH # 1.2 K/mm3 (0.7-4.5); LYMPH % 17.9 % (10-50.0)
--- NOTE | 2017-03-10 08:21 | ACUTE CARE PROGRESS NOTE (QUA) ---
Progress Notes Subjective Date 03/10/17 Time 0820 Note Overall patient feels somewhat better. Her epigastric pain has now migrated mostly to her back. She's been able to tolerate sips and chips. Has not had vomiting or diarrhea. Fever curve has improved. Alert, oriented, clear lungs. Abdomen is soft, normal bowel sounds. Tenderness with vigorous epigastric palpation. Objective Findings Last VS-Temp:99.4 B/P:122/63 Pulse:101 Resp:16 SaO2:95 ROOM AIR Last weight lbs:224 oz:3 K.691 Method:Bed Scales Assessment/Plan Problem List 1. Acute pancreatitis Qualifiers: Pancreatitis type: unspecified pancreatitis type Acute pancreatitis complication: no infection or necrosis Qualified Code: K85.90 - Acute pancreatitis without necrosis or infection, unspecified Patient condition Improving Plan: continue current care, check gallbladder ultrasound today. Remains on intravenous Protonix for possibility of duodenitis and possibility of duodenal ulcer. Gastrointestinal consultation today. Liver enzymes are improving. Continue bowel rest and pain regimen. Continue antibiotics given her fever on presentation. This inpt stay is expected to cross 2 MNs from start of care Yes at 0821
[2017-03-10 08:35] LABS: HEMOGLOBIN 11.5 g/dL (12.2-16.2)
--- NOTE | 2017-03-10 11:00 | RADIOLOGY REPORT PS360 ---
US RUQ-(ABD LTD)1ORGAN/QUAD/FU HISTORY: pancreatitis abdominal pain Patient Age: 61 years: Female Ordering Physician: Deon Payton MD TECHNIQUE: Ultrasound right upper quadrant COMPARISON :CT abdomen pelvis 03/08/2017 FINDINGS Pancreas. . Ill-defined margins of pancreas likely reflect pancreatitis but no focal fluid collections.... Perhaps subtle edematous appearance of pancreas is well. No focal lesions at pancreas Gallbladder. probable tiny stones seen on the decubitus images. small nonshadowing stones deep in gallbladder. These apparently seem to move under ultrasound observation supporting more likely as small stones rather than small polyps Gallbladder appears mildly distended measuring 9 cm length times up to 6 cm. Thin rim Pericholecystic fluid fluid surrounding the gallbladder;. This fluid could conceivably be secondary to the clinically suspected pancreatitis, vs developing cholecystitis. Gallbladder wall appears moderatel thickened as well, nonspecific but could reflect residual edematous changes or could reflect cholecystitis... I believe this is best seen on the transverse images gallbladder where the more superior gallbladder wall normal region of the pericholecystic fluid appears thicker measuring up to 6 mm,... Whereas inferior wall is less thickened Common duct appears normal diameter . It measuring 3.4 at the chula hepatis region and 5 mm just below the chula hepatis Liver. No focal lesions. no definite intrahepatic biliary ductal dilatation evident throughout the liver. Upper Normal ducts intrahepatic ducts . Portal vein with normal direction flow. Normal size. Liver otherwise unremarkable Right kidney appears normal. 10.6 cm in length. Cortex well-maintained no hydronephrosis nor mass. No fluid at Morison's pouch IMPRESSION: 1. . Gallbladder : Probable Cholelithiasis -Tiny gallstones along dependent GB seen only on decubitus images. Favor tiny nonshadowing stones rather than polyps -. Mildly distended gallbladder. Thin rim pericholecystic fluid . gallbladder wall thickening In this setting these findings are somewhat nonspecific.:. Could reflect cholecystitis; vs resulting secondary manifestations of regional inflammation from patient's pancreatitis -Common duct does not appear to be dilated.. Upper normal intrahepatic biliary radicles 2. Pancreas: Ill-defined margins. Likely mildly edematous generous size pancreas. These findings compatible pancreatitis. No focal fluid collections 3. Right kidney normal with no fluid evident at Morison's pouch
--- NOTE | 2017-03-10 16:38 | Operative Note ---
ERCP ([facility]har) Procedure date: 03/10/17 Date of : 55 Procedure:ERCP Endoscopic retrograde cholangiopancreatography with needle-knife and tome sphincterotomy, pancreatic ductal stent placement and balloon biliary extraction Indications: Mrs. Gutiérrez is a 61-year-old female who is hospitalized for gallstone pancreatitis. The patient had a total bilirubin of 3.8 on admission with AST 499 , ALT 389 and alkaline phosphatase of 156. Her lipase was 16,533 and amylase of 1986. Her total bilirubin climbed to 5.2 today. Her white blood cell count is normal and she has no fever. The patient did have a CAT scan of the abdomen and pelvis that showed acute pancreatitis with duodenal diverticulum. There was no biliary ductal dilation. The gallbladder was distended but there were no radio opaque stones. Performing Provider: Caron Waller MD Referrring Provider: Deon Payton M.D./Chris Coon M.D. Sedation: MAC sedation Procedure: Prior to the procedure, a history and physical exam was performed, and patient medications and allergies were reviewed. The risks and benefits of the procedure and the sedation options and risks were discussed with the patient. All questions were answered and informed consent was obtained. Patient identification and proposed procedure were verified by the physician and the nurse. The patient was placed in a left lateral decubitus position. Throughout the procedure, the patient's blood pressure, pulse, and oxygen saturations were monitored continuously. Findings: The scope was passed directly into the upper esophagus and advanced to the second and third portion of the duodenum. The esophagus was normal. There was mild reactive gastritis. The duodenum had some mild edema and there was marked amount of redundant folds making visualization of the ampulla more difficult. Also, there was a periampullary diverticulum which made visualization and easy cannulation of the ampulla more difficult. The pancreatic duct was initially cannulated. A pancreatogram was not performed but a 7 cm 10 [place] single pigtail on phalange pancreatic ductal stent was placed into the pancreatic duct for protection. The needle-knife was utilized to try to gain access to the biliary system. Subsequently after 25-30 minutes the bile duct was cannulated and cholangiogram was performed. There was the appearance of sludge distally within the common bile duct but no solid going defect. The CBD diameter was 6-7 mm with normal filling of the intrahepatic biliary system. Extension of the biliary sphincterotomy was performed with the sphincterotome. Next, a 9 mm balloon was placed at the hilum and swept into the biliary system with the passage of a moderate amount of sludge and brown bile not domínguez bile but no solid stone. After a second sweep there was no further sludge and there was decompression of the biliary system. Impressions: 1. CBD sludge/minor choledocholithiasis status post biliary clearance 2. Periampullary diverticulum was some duodenal edema Recommendations: The patient should have elective cholecystectomy after pancreatitis resolves. I would recommend repeat x-ray of the abdomen and 10-14 days. If the pancreatic stent is still in place, I would recommend endoscopic extraction. I have spoken with Dr. Chris Coon M.D. Complications: None EBL (ml): 0 at [id number]
--- NOTE | 2017-03-10 17:04 | CONSULT NOTE ---
Standard Demographics Patient Demo Date of Consultation: 03/10/17 Referring Provider: Deon Payton MD Reason for Consultation: PANCREATITIS PRIMARY DIAGNOSIS: ACUTE PANCREATITIS Allergies: Coded Allergies: No Known Allergies (03/08/17) History of Present Illness Chief Complaint: Abdominal pain History of Present Illness: Patient is a 61-year-old diabetic white female. She presented to the emergency department Friday evening with severe epigastric pain radiating into her back. Workup in the emergency department was consistent with acute pancreatitis by laboratory evaluation and radiographic investigation. She was admitted for inpatient management. With medical management she showed some improvement. She underwent RIGHT upper quadrant ultrasound which revealed small stones with some minor thickening and pericholecystic fluid. Surgical and gastroenterology consultations were obtained. Past Medical History Reports: hypertension, diabetes mellitus. Surgical History Previous Surgery?Y TUBAL LITHOTRIPSY Allergies Coded Allergies: No Known Allergies (03/08/17) Medications: Reported Medications ASPIRIN (Aspirin) 81 MG PO DAILY THIAMINE HCL (Vitamin B-1) 100 MG PO DAILY Vitamin E (Vitamin E 400 UNITS) 800 IUNITS PO DAILY Ascorbic Acid (Vitamin C) 1,000 MG PO DAILY MAGNESIUM OXIDE (Magnesium Oxide) 1,600 MG PO DAILY Cranberry Fruit (Cranberry) 400 MG PO BID METFORMIN HCL (Metformin) 1,000 MG PO BID Benazepril Hcl (Lotensin 20MG Tab) 20 MG PO DAILY Insulin Degludec (Tresiba Flextouch U-100) 28 UNIT SQ NIGHT Smoking Hx Tobacco: No Smoker: Never Smoker Type: N/A Packs/day: N/A Are you/the child exposed to second-hand smoke: No Alcohol Alcohol: No Hx of Drug Use Drug Use? No Review of Systems Additional information: Unable to obtain reliable review of systems at this time the patient due to recent sedation for ERCP. Physical Exam VS/I&O Vital Signs Date Time Temp Pulse Resp B/P Pulse O2 O2 Flow FiO2 Ox Delivery Rate 03/10 1702 87 16 144/65 95 03/10 1701 87 16 144/65 96 ROOM AIR 03/10 1654 73 16 134/71 95 ROOM AIR 03/10 1645 85 14 138/67 95 ROOM AIR 03/10 1639 88 14 130/68 03/10 1457 18 03/10 1048 18 03/10 0905 99.7 99 18 126/66 94 03/10 0800 99.7 99 18 126/66 94 ROOM AIR 03/10 0553 16 03/10 0353 99.4 101 20 122/63 95 ROOM AIR 03/09 2350 18 03/09 2020 99.1 99 20 134/63 96 03/09 2011 99.1 99 20 134/63 96 ROOM AIR 03/09 1941 16 I&O 03/10 0700 Intake Total 3584 Output Total Balance 3584 Intake, IV 3584 Intake, Oral 0 Exam General appearance no acute distress, sedated Respiratory clear to auscultation Cardiovascular normal heart sounds Abdomen soft Plan Plan: Patient seen and examined after ERCP. She had findings of biliary sludge and acute biliary pancreatitis for which she underwent successful ERCP with pancreatic stent placement. At this point would follow clinically. Once she shows improvement in pancreatic enzymes and liver function tests [place] be discharged home for ultimate follow-up outpatient cholecystectomy. at 1704
[2017-03-11 03:48] VITALS: BP 153/78
[2017-03-11 07:00] LABS: HEMOGLOBIN 11.4 g/dL (12.2-16.2); LYMPH # 1.1 K/mm3 (0.7-4.5); LYMPH % 14.2 % (10-50.0)
[2017-03-11 08:13] VITALS: BP 170/73
--- NOTE | 2017-03-11 08:51 | ACUTE CARE PROGRESS NOTE (QUA) ---
Progress Notes Subjective Date 03/11/17 Time 0750 Note Patient reports some nausea and epigastric discomfort this morning. No vomiting. Alert and oriented x 3. Rate and rhythm regular. No edema. Pulses 2+ bilaterally. Lung sounds clear and equal. Abdominal tenderness has improved, soft, mild tenderness RUQ, LUQ. Patient/family reports: nausea Nursing reports: no complaints Objective Findings Last VS-Temp:98.3 B/P:170/73 Pulse:71 Resp:18 SaO2:95 ROOM AIR Last weight lbs:224 oz:3 K.691 Method:Bed Scales Reviewed: medications, vital signs, lab results, radiology report Assessment/Plan Problem List 1. Acute pancreatitis Qualifiers: Pancreatitis type: unspecified pancreatitis type Acute pancreatitis complication: no infection or necrosis Qualified Code: K85.90 - Acute pancreatitis without necrosis or infection, unspecified Patient condition Improving Plan: continue current care This inpt stay is expected to cross 2 MNs from start of care Yes Comments: Continue IV antibiotics. Slowly advance to clear liquid diet. at 0849
--- NOTE | 2017-03-11 11:29 | SURGEON PROGRESS NOTE ---
Subjective data Subjective data: JOELLEN GOLDSMITH is a 61 F .Patient denies complaint of nausea and vomitting.She reports her last pain level as 0 on a 0-10 pain scale. Patient complains mainly of nausea. States she feels like she needs to belch but is unable to do so. Less pain. Assessment findings Assessment Exam General appearance: normal appearance, alert ABD: soft Patient plan Plan: Limit diet Additional data: Continue medical management of pancreatitis. Biliary tree decompressed. Would ultimately consider outpatient cholecystectomy. at 1466
[2017-03-11 15:27] VITALS: BP 143/71
[2017-03-11 20:08] VITALS: BP 156/77
[2017-03-11 20:15] VITALS: BP 156/77
[2017-03-12 04:30] VITALS: BP 125/72
[2017-03-12 06:58] LABS: HEMOGLOBIN 11.4 g/dL (12.2-16.2); LYMPH # 1.7 K/mm3 (0.7-4.5); LYMPH % 22.3 % (10-50.0)
[2017-03-12 07:53] VITALS: BP 141/81
--- NOTE | 2017-03-12 07:54 | ACUTE CARE PROGRESS NOTE (QUA) ---
Progress Notes Subjective Date 03/12/17 Time 0752 Note Overall patient feels much better, has some slight nausea but this has improved and she is handling clear liquids well. Heart rate regular, lungs clear. Abdomen is soft, much less tenderness. Objective Findings Last VS-Temp:98.2 B/P:125/72 Pulse:74 Resp:16 SaO2:96 ROOM AIR Last weight lbs:224 oz:3 K.691 Method:Bed Scales Assessment/Plan Problem List 1. Acute pancreatitis Qualifiers: Pancreatitis type: unspecified pancreatitis type Acute pancreatitis complication: no infection or necrosis Qualified Code: K85.90 - Acute pancreatitis without necrosis or infection, unspecified Patient condition Improving Plan: continue current care, advance diet. This inpt stay is expected to cross 2 MNs from start of care Yes at 0757
--- NOTE | 2017-03-12 10:05 | ACUTE CARE PROGRESS NOTE (QUA) ---
Progress Notes Subjective Date 03/12/17 Time 1003 Assessment/Plan Problem List 1. Acute pancreatitis This inpt stay is expected to cross 2 MNs from start of care Yes Antibiotic Stewardship (2) Infxn that will respond? No (empiric treatment) Right drug,dose,and route? Yes More targeted antbx? No Comment: DISCUSSED WITH DR. MCINTYRE, PANCREAS IS NOT INFECTIOUS, BUT PATIENT SHOWS SLUDGE IN GALLBLADDER. at 1001
--- NOTE | 2017-03-12 14:03 | SURGEON PROGRESS NOTE ---
Subjective data Subjective data: JOELLEN GOLDSMITH is a 61 F .Patient denies complaint of nausea and vomitting.She reports her last pain level as 0 on a 0-10 pain scale. Patient feeling somewhat better. Taking some limited full liquids. Complains of some "heartburn". Assessment findings Assessment Exam General appearance: normal appearance, alert ABD: soft Patient plan Plan: IV fluids Additional data: Continue supportive care for pancreatitis. at 1405
[2017-03-12 16:00] VITALS: BP 168/77
[2017-03-12 20:00] VITALS: BP 157/74
[2017-03-12 20:30] VITALS: BP 157/74
[2017-03-13 04:30] VITALS: BP 154/76
[2017-03-13 06:51] LABS: HEMOGLOBIN 10.7 g/dL (12.2-16.2); LYMPH # 1.7 K/mm3 (0.7-4.5); LYMPH % 24.2 % (10-50.0)
[2017-03-13 07:33] VITALS: BP 156/73
--- NOTE | 2017-03-13 08:51 | ACUTE CARE PROGRESS NOTE (QUA) ---
Progress Notes Subjective Date 03/13/17 Time 0850 Note Patient did not tolerate full liquids very well yesterday but is doing okay with clears this morning. Significant nausea. Epigastric pain is still present but minimized. Lungs are clear, heart rate regular, abdomen soft. Minimal epigastric tenderness. Objective Findings Last VS-Temp:98.7 B/P:156/73 Pulse:66 Resp:18 SaO2:96 ROOM AIR Last weight lbs:224 oz:3 K.691 Method:Bed Scales Assessment/Plan Problem List 1. Acute pancreatitis Qualifiers: Pancreatitis type: unspecified pancreatitis type Acute pancreatitis complication: no infection or necrosis Qualified Code: K85.90 - Acute pancreatitis without necrosis or infection, unspecified 2. Cholelithiasis 3. Hypokalemia Patient condition Improving Plan: continue current care, continue cautious dietary advancement. Labs are nicely improved with resolution of hyperbilirubinemia and improving transaminases. She is hypokalemic today. We will replace this orally. This inpt stay is expected to cross 2 MNs from start of care Yes at 0801
--- NOTE | 2017-03-13 09:34 | SURGEON PROGRESS NOTE ---
Subjective data Subjective data: JOELLEN GOLDSMITH is a 61 F .Patient denies complaint of nausea and vomitting.She reports her last pain level as 6 on a 0-10 pain scale. Patient had nausea and vomiting with full liquids. Seems to tolerate clears somewhat better. Assessment findings Assessment Exam General appearance: normal appearance, alert ABD: soft Patient plan Plan: IV fluids Additional data: Continue cautious medical management of biliary pancreatitis. at 0934
[2017-03-13 09:46] VITALS: BP 156/73
[2017-03-13 15:52] VITALS: BP 145/67
[2017-03-13 19:51] VITALS: BP 153/62
[2017-03-13 20:10] VITALS: BP 153/62
[2017-03-14 04:02] VITALS: BP 140/82
[2017-03-14 06:54] LABS: LYMPH # 2.2 K/mm3 (0.7-4.5); LYMPH % 26.2 % (10-50.0)
[2017-03-14 06:55] LABS: HEMOGLOBIN 11.9 g/dL (12.2-16.2)
[2017-03-14 08:09] VITALS: BP 153/73
--- NOTE | 2017-03-14 08:13 | SURGEON PROGRESS NOTE ---
Subjective data Subjective data: JOELLEN GOLDSMITH is a 61 F .Patient denies complaint of nausea and vomitting.She reports her last pain level as 0 on a 0-10 pain scale. Patient feeling really well today. Much better. Assessment findings Assessment Exam General appearance: normal appearance, alert ABD: soft, no tenderness Patient plan Plan: DC Home Additional data: Patient reportedly being discharged. Will need GI and surgical follow-up. at 0813
[2017-03-14] MEDS ORDERED: ZOFRAN ODT4 MG PO (08:17)
[2017-03-14] MEDS ORDERED: PROTONIX40 MG PO (08:18)
[2017-03-14] MEDS ORDERED: TYLENOL WITH CO1 TA1 PO (08:19)
--- NOTE | 2017-03-14 08:23 | DISCHARGE SUMMARY STANDARD ---
Demographics Admit date: 03/08/17 Discharge date: 03/14/17 History of present illness History of present illness 61-year-old white female diabetic, insulin requiring, who came to the emergency department yesterday evening with a sudden onset of severe epigastric pain that radiated down into both lower quadrants and through to her back. She reports significant nausea without vomiting, no diarrhea or constipation. No recent exposure to undercooked food or questionable water sources, no recent change in her medications. No recent alcohol use. In the emergency department she was noted to have elevated amylase and lipase, CT scan confirmed the finding of pancreatitis radiographically with evidence of duodenitis. Hospital Course Hospital Course: Patient was admitted, CT scan results were reviewed. Gallbladder ultrasound was reviewed showing sludge, stones and slightly distended gallbladder. Gastrointestinal service was consulted and subjected the patient ERCP, pancreatic duct stent was placed with bile and sludge release. Patient improved after initially having some nausea from the procedure. No duodenal ulcers were found but she was found to have duodenitis on the scope. Patient was placed on Protonix and did well with this. Surgery was consulted for evaluation for cholecystectomy, they followed along during the case. Patient continued to improve in a stepwise fashion her diet was advanced to full liquids yesterday with minimal problems. This morning bilirubin and transaminases are normal, white count is normal, abdomen exam is soft with no bruising, no tenderness, lungs and cardiac exam are normal. She's alert, pleasant, talkative and wishes to go home. She'll be discharged home with short-term follow-up in 3 days with surgery and with my office, she will get labs on the morning. Continue proton pump inhibitor and short-term pain medication and Zofran was written. Discharge diagnoses Problem List 1. Acute pancreatitis 2. Cholelithiasis 3. Hypokalemia Medications Medications: Discharge meds are as noted. Follow up Follow up in office in: 3 DAYS with: Chris Cono MD at 0822
[2017-03-14 09:05] VITALS: BP 153/73
--- NOTE | 2017-04-17 08:53 | RADIOLOGY REPORT PS360 ---
ERCP RADIOLOGIC HISTORY: GALLSTONE PACREATITIS Patient Age: 61 years: Female Ordering Physician: Deon Payton MD TECHNIQUE: Single AP view right upper quadrant during pancreatic duct stent placement along & ERCP with sphincterotomy and duct COMPARISON :CT abdomen and pelvis 03/08/2017 FINDINGS A single image shows a pancreatic duct stent stent in place . No contrast is seen within the pancreatic duct and apparently it was not injected per Dr. Dr. Waller note. By there is no radiopaque contrast outlining normal caliber common duct. The common duct is been cannulated with wire extending superiorly at the common duct and partially sphincterotomy device towards inferior region. Dr. Waller note states a sphincterotomy was performed. There is no filling of the cystic duct or gallbladder on this single image but imaging and submitted images here appears to be very limited on this single view IMPRESSION: --------- ERCP demonstrates normal caliber common duct Pancreatic duct stent in place
== END 2017-03-14 09:40 | disposition home or self-care (01) | DRG 440 ==
LOC: UTC 19:54 → ER 19:54 → 2ND 21:31 → ER 21:31 → 2ND 21:45 → ER 21:47 → 2ND 03-14 09:40
PROVIDERS: Emergency Medicine; Internal Medicine Adolescent Medicine; Internal Medicine Gastroenterology
PROC: 0FC98ZZ Extirpation of Matter from Common Bile Duct, Via Natural or Artificial Opening Endoscopic (ICD-10-PCS; principal; 2017-03-10 15:30)
PROC: 0F7D8DZ Dilation of Pancreatic Duct with Intraluminal Device, Via Natural or Artificial Opening Endoscopic (ICD-10-PCS; principal; 2017-03-10 15:30)
DX: K85.10 Biliary acute pancreatitis without necrosis or infection (principal); E11.9 Type 2 diabetes mellitus without complications; Z79.4 Long term (current) use of insulin; E87.6 Hypokalemia; I10 Essential (primary) hypertension
CPT/HCPCS: J1335; J2405; Q9967

== ENCOUNTER → 2017-03-17 | Outpatient (CLI) | payer BC ==
[~2017-03-17] MED LIST changes: +ASPIRIN 81MG TA81 MG PO; +CRANBERRY400 M2 PO; +LOTENSIN 20MG T20 MG PO; +MAG-OX 400MG T400 MG PO; +PROTONIX40 MG PO; +TRESIBA FL100 UNIT/1 SQ; +TYLENOL WITH CO1 TA1 PO; +VITAMIN B-1100 MG PO; +VITAMIN C500 M1 PO; +VITAMIN E 400400 IU PO; +ZOFRAN ODT4 MG PO
[2017-03-17 11:30] LABS: LYMPH # 2.6 K/mm3 (0.7-4.5); LYMPH % 33.9 % (10-50.0)
[2017-03-17 11:43] LABS: HEMOGLOBIN 13.2 g/dL (12.2-16.2)
[2017-03-17 13:45] LABS: BUN 6 mg/dL (7-18); GFR (ESTIMATED) 85 ML/MIN (59-)
== END ==
LOC: LAB 10:06
PROVIDERS: Internal Medicine Adolescent Medicine
DX: K85.90 Acute pancreatitis without necrosis or infection, unspecified (principal)

== ENCOUNTER → 2017-03-21 | Outpatient (CLI) | payer BC ==
--- NOTE | 2017-03-21 10:59 | RADIOLOGY REPORT PS360 ---
ABD ACUTE(MUL VIEWS) HISTORY:PANCREATITIS,STENT PLACEMENT ORDERING PHYSICIAN: Chris Coon MD PATIENT AGE: 61 years COMPARISON: None FINDINGS: A frontal view of the chest shows no acute finding. Upright and supine views of the abdomen show a nonspecific nonobstructive bowel gas pattern. Pancreatic stent previously placed now or size in the right mid abdominal region and is not felt to be in proper location likely in the small bowel. There are degenerative changes within the lumbar spine. IMPRESSION: 1. Pancreatic stent is now in the region of the right mid abdominal region overlying the iliac crest and not felt to be within the pancreas
== END ==
LOC: RAD 10:04
DX: K86.1 Other chronic pancreatitis (principal); Z96.89 Presence of other specified functional implants

== ENCOUNTER → 2017-03-27 | Outpatient (CLI) | payer BC ==
--- NOTE | 2017-03-27 18:14 | RADIOLOGY REPORT PS360 ---
ABD ACUTE(MUL VIEWS) HISTORY: ABD PAIN ORDERING PHYSICIAN: Chris Coon MD PATIENT AGE: 61 years COMPARISON: None FINDINGS: Frontal view of chest shows no acute finding. Upright and supine views of the abdomen show nonspecific bowel gas pattern without obstruction or free air. There is a short catheter noted in the right mid abdominal region. The pigtail part of the catheter is space inferiorly. This is superior to the right iliac crest. Previously the pigtail portion of the catheter base laterally. This is probably within the colon. The may confirm its position. Number scoliosis with degenerative disc disease and osteophyte formation. IMPRESSION: Biliary stent probably in the hepatic flexure of the colon
== END ==
LOC: RAD 17:01
DX: R10.9 Unspecified abdominal pain (principal); K86.1 Other chronic pancreatitis; Z96.89 Presence of other specified functional implants

== ENCOUNTER → 2017-04-09 | Day surgery (SDC) | payer BC ==
[~2017-04-09] VITALS: Ht 162.6 cm; Wt 98.4 kg
--- NOTE | 2017-04-09 16:25 | Operative Note ---
Surgeon/Diagnoses Surgeon/Interior Painter(s) Date of procedure: 04/09/17 Surgeon: Chris Coon Diagnoses Pre-op diagnosis: Biliary pancreatitis Post-op diagnosis Same Procedure Procedure Procedure: Laparoscopic cholecystectomy Indications: JOELLEN GOLDSMITH is a 61 year-old Female with a history of biliary pancreatitis. Patient was recently admitted with findings consistent with biliary pancreatitis. She had elevation of liver function tests and had undergone ERCP with stent placement. She convalesced and was follow-up as an outpatient. Follow -up abdominal x-ray revealed migration of the stent likely into the small bowel as would be expected and desired. Additional follow-up abdominal x-ray revealed stent likely in the large bowel. Plan was made to proceed with cholecystectomy to eliminate source of pancreatitis. Findings: Fatty liver. Distended gallbladder with omental adhesions and duodenum adherent to the neck of the gallbladder. Short cystic duct. Procedure Description: Consent was obtained and patient was taken to the operating room. She was given preoperative intravenous antibiotics. She was placed in a supine position. Gen. anesthesia was induced via endotracheal tube. Her abdomen was prepped and draped in the standard surgical fashion. Infraumbilical skin incision was made and while performing abdominal wall lifted the Veress needle was inserted. Good insufflation pressures were achieved and pneumoperitoneum was achieved to 15 mmHg. 10/11 mm optical trocar was inserted at the umbilicus. Intraperitoneal contents were visualized. She was positioned in reverse Trendelenburg with LEFT side down. A couple of 5 mm trochars were inserted in the RIGHT upper abdomen. 10 mm trocar was inserted in the epigastrium. Gallbladder was identified and retracted anteriorly and superiorly over the dome the liver. There were adhesions to the gallbladder and these are taken down using blunt dissection. Infundibulum/Dianne's pouch the gallbladder was grasped retracted anterolaterally. The duodenum was adherent to the neck of the gallbladder and this was carefully dissected free. Blunt dissection was carried out at the neck of the gallbladder. Ultimately cystic duct and cystic artery were identified. Appears though the cystic duct was rather short. Careful dissection was carried out isolating the cystic duct and cystic artery. Cystic duct was multiply clipped and then divided. Cystic artery was carefully coagulated with Dre ultrasonic harmonic yissel and divided. Gallbladder was dissected free from the liver in a retrograde fashion using Dre ultrasonic harmonic yissel. There was some unavoidable spillage of bile during the dissection process and this was suctioned free. Gallbladder was placed within an Endo Catch retrieval device and removed from the peritoneal cavity via the umbilical trocar site. Gallbladder fossa and perihepatic space were thoroughly irrigated and aspirated until clear. Trochars were removed as CO2 pneumoperitoneum was evacuated. Fascia at the umbilicus was closed with a 0 Vicryl suture. Local anesthetic was infiltrated. Skin incisions were closed with 4-0 Monocryl in a subcuticular fashion. Clean dry sterile dressing was applied. EBL (ml): 25 Anesthesia: GETA Specimens: Gallbladder and contents Disposition Disposition: To PACU at 1620
--- NOTE | 2017-04-09 16:30 | Anesthesia Record ---
Anesthesia Record Part I Total IV fluids: 2000 EBL (ml): 10 Urine Output: 0 B/P: 122/67 % SaO2: 95 Pulse: 88 Resps: 16 Temp: 98.1 Patient is: Drowsy, Nasal O2, Stable Stable to PACU at: 1625 at 1624
--- NOTE | 2017-04-09 16:30 | Anesthesia Record ---
Anesthesia Record Part II Discharge time: 1655 Destination: Same day surgery PACU nurse assessment review? Yes Patient is: Stable Anesthesia complications? No at 5634
[2017-04-10 21:34] VITALS: BP 146/82
== END ==
LOC: SDC 09:48
PROVIDERS: Surgery
PROC: 0FT44ZZ Resection of Gallbladder, Percutaneous Endoscopic Approach (ICD-10-PCS; principal; 2017-04-09 12:45)
DX: K85.10 Biliary acute pancreatitis without necrosis or infection (principal)
CPT/HCPCS: J0131; J2405